=== PATIENT | female | born 1965 | race Caucasian/White ===

== ENCOUNTER 2023-06-24 06:06 | Emergency (ER) | payer OTHER ==
[~2023-06-24] VITALS: Ht 160 cm; Wt 74.8 kg
[2023-06-24 06:12] VITALS: BP_SYST 119; PULSE 101; RESP 20; TEMP 97.1; O2SAT 100
[2023-06-24] MEDS ORDERED: KETOROLAC TROMETHAMINE 60 MG/2 ML VIAL IM ONE (06:30)
[2023-06-24] MEDS ORDERED: HYDR-3927 PO (07:47)
[2023-06-24] MEDS ORDERED: SOM350 PO (07:47)
[2023-06-24] MEDS ORDERED: IBUP-1971 PO (07:47)
[2023-06-24] MEDS ORDERED: carisoprodoL 350 MG TABLET PO ONE (08:15)
[2023-06-24] MEDS ORDERED: MORPHINE 4 MG INJ. 4 MG/ML VIAL IVP ONE (08:15)
[2023-06-24 08:30] LABS: BILIRUBIN,URINE NEGATIVE (NEGATIVE); BLOOD, URINE 2+ (NEGATIVE); CLARITY/URINE CLEAR (CLEAR); COLOR,URINE YELLOW (YELLOW); GLUCOSE,URINE NEGATIVE (NEGATIVE); KETONES,URINE NEGATIVE (NEGATIVE); LEUKOCYTE ESTERASE ,URINE NEGATIVE (NEGATIVE); NITRITE, URINE NEGATIVE (NEGATIVE); PH,URINE 6.5 (5.0-8.0); PROTEIN URINE NEGATIVE (NEGATIVE); UROBILINOGEN,URINE 0.2 (0.2-1.0)
[2023-06-24 08:49] LABS: BACTERIA,URINE None Seen /HPF (None Seen); WBC,URINE 0-3 /HPF (0-3)
[2023-06-24 09:18] VITALS: BP_SYST 136; PULSE 73; RESP 18; TEMP 98.1; O2SAT 99
== END 2023-06-24 09:15 | disposition home or self-care (01) ==
LOC: SED 06:06
DX: S39.012A Strain of muscle, fascia and tendon of lower back, initial encounter (principal); Z79.899 Other long term (current) drug therapy; X58.XXXA Exposure to other specified factors, initial encounter; Y93.89 Activity, other specified; Y92.89 Other specified places as the place of occurrence of the external cause; Y99.8 Other external cause status
CPT/HCPCS: 99284; 96374; 81000; 81001; 72100; 96372; 81015; J1885; J2270

== ENCOUNTER 2023-07-15 07:56 | Emergency (ER) | payer OTHER ==
[~2023-07-15] VITALS: Ht 162.6 cm; Wt 68.0 kg
[~2023-07-15 07:56] MED LIST: HYDR-3927 PO; IBUP-1971 PO; SOM350 PO
[2023-07-15 08:00] VITALS: BP_SYST 135; PULSE 79; RESP 19; TEMP 98; O2SAT 98
[2023-07-15] MEDS: KETOROLAC TROMETHAMINE 30 MG VIAL IM ONE (08:29)
[2023-07-15] MEDS: HYDROcodone/ACETAMIN 5-325 MG TAB (NORCO/ VICODIN) PO ONE (08:30)
[2023-07-15 09:06] LABS: CALCIUM 9.4 mg/dL (8.4-11.0); CREATININE 0.81 mg/dL (0.55-1.30)
[2023-07-15 09:11] LABS: ALBUMIN 3.8 g/dL (3.4-4.8); TOTAL BILIRUBIN 0.2 mg/dL (0.0-1.0); TOTAL PROTEIN, SERUM 7.2 g/dL (6.4-8.3)
[2023-07-15] MEDS ORDERED: [UNRECOGNIZED DRUG - CODE] TP (09:31)
[2023-07-15] MEDS ORDERED: NAPR-1172 PO (09:31)
[2023-07-15] MEDS ORDERED: ACET-2634 PO (09:31)
[2023-07-15 11:08] LABS: BILIRUBIN,URINE NEGATIVE (NEGATIVE); BLOOD, URINE 1+ (NEGATIVE); CLARITY/URINE CLEAR (CLEAR); COLOR,URINE YELLOW (YELLOW); GLUCOSE,URINE NEGATIVE (NEGATIVE); KETONES,URINE NEGATIVE (NEGATIVE); LEUKOCYTE ESTERASE ,URINE NEGATIVE (NEGATIVE); NITRITE, URINE NEGATIVE (NEGATIVE); PROTEIN URINE NEGATIVE (NEGATIVE); UROBILINOGEN,URINE 0.2 (0.2-1.0)
[2023-07-15 11:17] LABS: BACTERIA,URINE None Seen /HPF (None Seen); WBC,URINE 0-3 /HPF (0-3)
[2023-07-15 11:47] VITALS: BP_SYST 135; PULSE 79; RESP 19; TEMP 98; O2SAT 98
== END 2023-07-15 11:48 | disposition home or self-care (01) ==
LOC: SED 07:56
DX: M54.16 Radiculopathy, lumbar region (principal); Z79.899 Other long term (current) drug therapy
CPT/HCPCS: 99283; 80053; 81001; 36415; 96372; J1885; 81000; 81015